=== PATIENT | female | born 1945 | race Caucasian/White ===

== ENCOUNTER → 2018-07-23 | Outpatient (CLI) | payer MEDICARE, BC ==
--- NOTE | 2018-07-24 13:53 | MM ---
Reason for exam: screening (asymptomatic). Last mammogram was performed 1 year ago. History: Patient is postmenopausal. Family history of breast cancer in mother at age 70. Benign excisional biopsy of the left breast. Took estrogen for 5 years. Physical Findings: A clinical breast exam by your physician is recommended on an annual basis and results should be correlated with mammographic findings. MG 3D Screening Mammo W/Cad Bilateral CC and MLO view(s) were taken. Prior study comparison: July 22, 2017, bilateral MG 3d screening mammo w/cad. July 20, 2016, bilateral MG 3d screening mammo w/cad. The breast tissue is heterogeneously dense. This may lower the sensitivity of mammography. No suspicious abnormality. Post biopsy change on the left. No significant changes when compared with prior studies. ASSESSMENT: Benign, BI-RAD 2 RECOMMENDATION: Routine screening mammogram of both breasts in 1 year.
== END | disposition home or self-care (01) ==
LOC: RADMAMWWP 09:49
PROVIDERS: ATTEND Internal Medicine Geriatric Medicine
DX: Z12.31 Encounter for screening mammogram for malignant neoplasm of breast (principal)
CPT/HCPCS: 77063; 77067

== ENCOUNTER → 2019-07-24 | Outpatient (CLI) | payer BC, MEDICARE ==
--- NOTE | 2019-07-27 11:38 | MM ---
Reason for exam: screening (asymptomatic). Last mammogram was performed 1 year ago. History: Patient is postmenopausal. Family history of breast cancer in mother at age 70. Benign excisional biopsy of the left breast. Took estrogen for 5 years. Physical Findings: A clinical breast exam by your physician is recommended on an annual basis and results should be correlated with mammographic findings. MG Screening Mammo w CAD Bilateral CC, MLO, and XCCL view(s) were taken. Prior study comparison: July 23, 2018, bilateral MG 3d screening mammo w/cad. July 22, 2017, bilateral MG 3d screening mammo w/cad. The breast tissue is heterogeneously dense. This may lower the sensitivity of mammography. Benign appearing calcifications in the left breast. No suspicious abnormality. No significant changes when compared with prior studies. ASSESSMENT: Benign, BI-RAD 2 RECOMMENDATION: Routine screening mammogram of both breasts in 1 year.
== END | disposition home or self-care (01) ==
LOC: RADMAMWWP 08:59
PROVIDERS: ATTEND Internal Medicine Geriatric Medicine
DX: Z12.31 Encounter for screening mammogram for malignant neoplasm of breast (principal)
CPT/HCPCS: 77067

== ENCOUNTER → 2019-08-25 | Outpatient (CLI) | payer BC, MEDICARE ==
--- NOTE | 2019-08-25 15:17 | BD ---
EXAMINATION TYPE: Axial Bone Density DATE OF EXAM: 08/25/2019 COMPARISON: 2014 CLINICAL HISTORY: M [age] Height: 5 FT Weight: 99 FRAX RISK QUESTIONS: Alcohol (3 or more units per day): NO Family History (Parent hip fracture): YES Glucocorticoids (More than 3mos): NO (Ex: prednisone, prednisolone, methylprednisolone, dexamethasone, and hydrocortisone). History of Fracture in Adulthood: NO Secondary Osteoporosis: 1. Type 1 Diabetes: NO 2. Hyperthyroidism: NO 3. Menopause before 45: NO 4. Malnutrition: NO 5. Chronic liver disease: NO Rheumatoid Arthritis: NO Current Tobacco Use: NO RISK FACTORS HISTORY OF: Family History of Osteoporosis: MOTHER Active: YES Postmenopausal woman: APPROX 48 Lost more than 2 inches in height since high school: YES MEDICATIONS: Additional Medications: UNKNOWN Additional History: EXAM MEASUREMENTS: Bone mineral densitometry was performed using the [employer] System. Bone mineral density as measured about the Lumbar spine is: ----- L1-L4(G/cm2): 0.998 T Score Values are as follows: ----- L2: -2.5 ----- L3: -0.6 ----- L4: -1.0 ----- L1-L4: -1.5 Bone mineral density has: INCREASED 0.7 % since study of: 2014 Bone mineral density about the R hip (g/cm2): 0.710 Bone mineral density about the L hip (g/cm2): 0.671 T Score values are as follows: -----R Neck: -2.4 -----L Neck: -2.6 -----R Total: -2.6 -----L Total: -2.3 Bone mineral density has: DECREASED -13.6 % since study of: 2014 IMPRESSION: Osteoporosis (T Score less than -2.5). There is increased fracture risk and therapy is usually indicated based on age. Re-Screen 1-2 years. NOTE: T-SCORE=SD OF THE YOUNG ADULT MEAN.
== END | disposition home or self-care (01) ==
LOC: RADBDWWP 12:29
PROVIDERS: ATTEND Internal Medicine Geriatric Medicine
DX: M81.0 Age-related osteoporosis without current pathological fracture (principal)
CPT/HCPCS: 77080

== ENCOUNTER → 2020-11-29 | Outpatient (CLI) | payer MEDICARE ==
--- NOTE | 2020-11-30 11:41 | MM ---
Reason for exam: screening (asymptomatic). Last mammogram was performed 1 year and 4 months ago. History: Patient is postmenopausal. Family history of breast cancer in mother at age 70. Benign excisional biopsy of the left breast. Took estrogen for 5 years. Physical Findings: A clinical breast exam by your physician is recommended on an annual basis and results should be correlated with mammographic findings. MG 3D Screening Mammo W/Cad Bilateral CC and MLO view(s) were taken. Prior study comparison: July 24, 2019, bilateral MG screening mammo w CAD. July 23, 2018, bilateral MG 3d screening mammo w/cad. The breast tissue is heterogeneously dense. This may lower the sensitivity of mammography. Finding #1: There is stable architectural distortion in the upper outer quadrant of the left breast consistent with known excisional changes. Finding #2: There are typically benign round calcifications in the left breast. There is no discrete abnormality. ASSESSMENT: Benign, BI-RAD 2 RECOMMENDATION: Routine screening mammogram of both breasts in 1 year.
== END | disposition home or self-care (01) ==
LOC: RADMAMWWP 10:41
PROVIDERS: ATTEND Internal Medicine Geriatric Medicine
DX: Z12.31 Encounter for screening mammogram for malignant neoplasm of breast (principal); Z80.3 Family history of malignant neoplasm of breast; Z78.0 Asymptomatic menopausal state
CPT/HCPCS: 77063; 77067

== ENCOUNTER → 2022-05-23 | Outpatient (CLI) | payer MEDICARE ==
--- NOTE | 2022-05-24 07:00 | BD ---
EXAMINATION TYPE: Axial Bone Density DATE OF EXAM: 05/23/2022 COMPARISON: NONE CLINICAL HISTORY: 77 year old Female. ICD-10 CODE: M81.0 AGE RELATED OSTEOPOROSIS Height: 61 Weight: 117.7 FRAX RISK QUESTIONS: Alcohol (3 or more units per day): no Family History (Parent hip fracture): no Glucocorticoids (More than 3mos): no (Ex: prednisone, prednisolone, methylprednisolone, dexamethasone, and hydrocortisone). History of Fracture in Adulthood: no Secondary Osteoporosis: 1. Type 1 Diabetes: no 2. Hyperthyroidism: no 3. Menopause before 45: no 4. Malnutrition: no 5. Chronic liver disease: no Rheumatoid Arthritis: no Current Tobacco Use: no RISK FACTORS HISTORY OF: Surgery to Spine/Hip(right/left)/Wrist (right/left): no Family History of Osteoporosis: yes Active: yes Diet low in dairy products/other sources of calcium: no Postmenopausal woman: yes Lost more than 2 inches in height since high school: no MEDICATIONS: Additional History: EXAM MEASUREMENTS: Bone mineral densitometry was performed using the [employer] System. Bone mineral density as measured about the Lumbar spine is: ----- L1-L4(G/cm2): 1.029 T Score Values are as follows: ----- L1: -1.9 ----- L2: -2.3 ----- L3: -0.5 ----- L4: -0.7 ----- L1-L4: -1.3 Bone mineral density has: increased 3.0 % since study of: 07.01.2015 Bone mineral density about the R hip (g/cm2): 0.680 Bone mineral density about the L hip (g/cm2): 0.649 T Score values are as follows: -----R Neck: -2.6 -----L Neck: -2.8 -----R Total: -2.3 -----L Total: -1.9 Bone mineral density has: decreased -8.5 % since study of: 07.01.2015 FRAX%s: The graph provided illustrates a 20.5% chance for a major osteoporotic fx and a 8.1% chance f or the hips probability for fx in 10 years time. IMPRESSION: Osteopenia (T Score between -2.5 and -1). There is slightly increased risk of fracture and the patient may be considered for treatment. Re-Screen 2-5 years. NOTE: T-SCORE=SD OF THE YOUNG ADULT MEAN.
--- NOTE | 2022-05-24 10:11 | MM ---
Reason for Exam: Screening (asymptomatic). Last mammogram was performed 1 year(s) and 6 month(s) ago. Patient History: Menarche at age 9. First Full-Term at age 19. Postmenopausal. Patient used Estrogen for 5 years. Benign Excisional Biopsy on the left side. Mother had breast cancer, age 70. Risk Values: Corry 5 year model risk: 4.2%. NCI Lifetime model risk: 6.9%. Prior Study Comparison: 07/23/2018 Bilateral Screening Mammogram, [facility]. 07/24/2019 Bilateral Screening Mammogram, [facility] 11/29/2020 Bilateral Screening Mammogram, [facility]. Tissue Density: The breast tissue is heterogeneously dense. This may lower the sensitivity of mammography. Findings: Analyzed By CAD. There is no suspicious group of microcalcifications or new suspicious mass in either breast. No significant change from prior exams. Overall Assessment: Benign, BI-RAD 2 Management: Screening Mammogram of both breasts in 1 year. A clinical breast exam by your physician is recommended on an annual basis and results should be correlated with mammographic findings. Electronically signed and approved by: Jaime Kaiser D.O.
== END | disposition home or self-care (01) ==
LOC: RADMAMWWP 12-27 15:47 → RADBDWWP 15:43
PROVIDERS: ATTEND Internal Medicine Geriatric Medicine
DX: Z12.31 Encounter for screening mammogram for malignant neoplasm of breast (principal); M85.89 Other specified disorders of bone density and structure, multiple sites; Z78.0 Asymptomatic menopausal state; Z80.3 Family history of malignant neoplasm of breast
CPT/HCPCS: 77063; 77067; 77080

== ENCOUNTER 2024-07-07 10:38 | Observation (INO) | payer MEDICARE ==
[2024-07-07] MEDS: SODIUM CHLORIDE 0.9% 500 ML 500 ML IV STA (11:09)
--- NOTE | 2024-07-07 11:36 | ED ---
Dizziness HPI - General Chief Complaint: Syncope Stated Complaint: Syncope Time Seen by Provider: 07/07/24 10:40 Source: patient, family, EMS, RN notes reviewed Mode of arrival: EMS Limitations: no limitations - History of Present Illness Initial Comments: 79 year old female presents to the emergency department with chief complaint of dizziness via EMS. Family reports video of patient feeling light headed, lowering self to seated position, then hitting right side of head on ground. She is not currently taking any blood thinners. She denies pain, vision changes, headache, loss of consciousness, or other complaints. Family states that she does have a history of Alzheimer's disease and dementia and that she is awaiting placement at [facility]. - Related Data Home Medications Medication Instructions Recorded Confirmed Alendronate Sodium [Fosamax] 70 mg PO Q7D 09/30/22 07/07/24 Donepezil HCl [Aricept] 10 mg PO HS 09/30/22 07/07/24 Rosuvastatin Calcium 5 mg PO HS 09/30/22 07/07/24 Memantine [Namenda] 10 mg PO HS 07/07/24 07/07/24 Allergies Allergy/AdvReac Type Severity Reaction Status Date / Time Penicillins Allergy Rash/Hives Verified 07/07/24 11:34 Review of Systems ROS Statement: Those systems with pertinent positive or pertinent negative responses have been documented in the HPI. ROS Other: All systems not noted in ROS Statement are negative. Past Medical History Past Medical History: Dementia, Hyperlipidemia, Osteoarthritis (OA), Sleep Apnea /CPAP/BIPAP Additional Past Medical History / Comment(s): osteoporosis History of Any Multi-Drug Resistant Organisms: None Reported Past Surgical History: Breast Surgery Past Anesthesia/Blood Transfusion Reactions: No Reported Reaction Past Psychological History: No Psychological Hx Reported Smoking Status: Never smoker Past Alcohol Use History: None Reported Past Drug Use History: None Reported - Past Family History Father Family Medical History: Myocardial Infarction (MN) Mother Additional Family Medical History / Comment(s): breastcer can General Exam Limitations: no limitations General appearance: alert, in no apparent distress Head exam: Present: atraumatic, normocephalic, normal inspection Eye exam: Present: normal appearance, PERRL, EOMI. Absent: scleral icterus, conjunctival injection, periorbital swelling ENT exam: Present: normal exam, mucous membranes moist Neck exam: Present: normal inspection. Absent: tenderness, meningismus, lymphadenopathy Respiratory exam: Present: normal lung sounds bilaterally. Absent: respiratory distress, wheezes, rales, rhonchi, stridor Cardiovascular Exam: Present: regular rate, normal rhythm, normal heart sounds. Absent: systolic murmur, diastolic murmur, rubs, gallop, clicks GI/Abdominal exam: Present: soft, normal bowel sounds. Absent: distended, tenderness, guarding, rebound, rigid Extremities exam: Present: normal inspection, full ROM, normal capillary refill. Absent: tenderness, pedal edema, joint swelling, calf tenderness Back exam: Present: normal inspection Neurological exam: Present: alert, oriented X3, CN II-XII intact Psychiatric exam: Present: normal affect, normal mood Skin exam: Present: warm, dry, intact, normal color. Absent: rash Course Vital Signs 07/07/24 07/07/24 10:39 12:22 Temperature 97.7 F Pulse Rate 74 Pulse Rate [ 77 Sitting Dental Officer] Pulse Rate [ 82 Standing Dental Officer ] Pulse Rate [ 70 Supine Dental Officer] Respiratory 16 Rate Blood Pressure 165/89 Blood Pressure 174/103 [Right Arm Sitting] Blood Pressure 173/108 [Right Arm Standing] Blood Pressure 162/85 [Right Arm Supine] O2 Sat by Pulse 100 Oximetry EKG Findings - EKG Comments: EKG Findings:: EKG performed at 10: 49 frequent PVCs, sinus rhythm rate 71 NV 162 QRS 85 QT/QTc 412/435. Repeat EKG 11: 06 rate of 78 QRS 86 QT/QTc 404/438 multiple PVCs - EKG Results: EKG: interpreted by MANUEL Medical Decision Making - Medical Decision Making Was pt. sent in by a medical professional or institution (, PA, WIENER PACKER, urgent care, hospital, or halfway...) When possible be specific @ -No Did you speak to anyone other than the patient for history (EMS, parent, family, police, friend...)? What history was obtained from this source @ -[Family providing past medical history and current complaint Did you review nursing and triage notes (agree or disagree)? Why? @ -I reviewed and agree with nursing and triage notes Were old charts reviewed (outside hosp., previous admission, EMS record, old EKG, old radiological studies, urgent care reports/EKG's, halfway records)? Report findings @ -No old charts were reviewed Differential Diagnosis (chest pain, altered mental status, abdominal pain women, abdominal pain men, vaginal bleeding, weakness, fever, dyspnea, syncope, headache, dizziness, GI bleed, back pain, seizure, CVA, palpatations, mental health, musculoskeletal)? @ -Differential Syncope: Valvular disease, hypertrophic cardiomyopathy, pulmonary embolism, tamponade, tachycardia, bradycardia, MN, hypovolemia, hemorrhage, dissection, anemia, intracranial hemorrhage, seizure, hypoglycemia, carbon monoxide poisoning, this is not meant to be an all-inclusive list. EKG interpreted by me (3pts min.). @ -As above X-rays interpreted by me (1pt min.). @ -Chest x-ray shows possible atelectasis versus bibasilar infiltrates CT interpreted by me (1pt min.). @ -CT brain, C-spine showing no acute intracranial hemorrhage or mass effect U/S interpreted by me (1pt. min.). @ -None done What testing was considered but not performed or refused? (CT, X-rays, U/S, labs)? Why? @ -None What meds were considered but not given or refused? Why? @ -None Did you discuss the management of the patient with other professionals (professionals i.e. , PA, WIENER PACKER, lab, RT, psych nurse, social services assistant, safety fire boss, teacher, policy officer, nurse outreach case manager)? Give summary @ -Dr. Estrella for admission Was smoking cessation discussed for >3mins.? @ -No Was critical care preformed (if so, how long)? @ -No Were there social determinants of health that impacted care today? How? (Homelessness, low income, unemployed, alcoholism, drug addiction, transportation, low edu. Level, literacy, decrease access to med. care, residential, rehab)? @ -No Was there de-escalation of care discussed even if they declined (Discuss DNR or withdrawal of care, Hospice)? DNR status @ -No What co-morbidities impacted this encounter? (DM, HTN, Smoking, COPD, CAD, Cancer, CVA, ARF, Chemo, Hep., AIDS, mental health diagnosis, sleep apnea, morbid obesity)? @ -Dementia Was patient admitted / discharged? Hospital course, mention meds given and route, prescriptions, significant lab abnormalities, going to OR and other pertinent info. @ -Admitted patient presented for syncopal episode patient is currently living at home by herself unclear this is vasovagal versus cardiogenic. Patient will be admitted for cardiac rule out and cardiology evaluation. Chest x-ray showed possible bibasilar infiltrates patient has no cough fever or any URI symptoms Undiagnosed new problem with uncertain prognosis? @ -No Drug Therapy requiring intensive monitoring for toxicity (Heparin, Nitro, Insulin, Cardizem)? @ -No Were any procedures done? @ -No Diagnosis/symptom? @ -Syncope Acute, or Chronic, or Acute on Chronic? @ -Acute Uncomplicated (without systemic symptoms) or Complicated (systemic symptoms)? @ -Complicated Side effects of treatment? @ -No Exacerbation, Progression, or Severe Exacerbation? @ -No Poses a threat to life or bodily function? How? (Chest pain, USA, MN, pneumonia, PE, COPD, DKA, ARF, appy, cholecystitis, CVA, Diverticulitis, Homicidal, Suicidal, threat to staff... and all critical care pts) @ -No - Lab Data Result diagrams: 07/07/24 10:57 07/07/24 10:57 Lab Results 07/07/24 07/07/24 07/07/24 Range/Units 10:57 10:57 10:57 WBC 8.2 (3.8-10.6) k/uL RBC 4.55 (3.80-5.40) m/uL Hgb 13.5 (11.4-16.0) gm/dL Hct 41.6 (34.0-46.0) % MCV 91.6 (80.0-100.0) fL MCH 29.6 (25.0-35.0) pg MCHC 32.4 (31.0-37.0) g/dL RDW 13.2 (11.5-15.5) % Plt Count 273 (150-450) k/uL MPV 7.4 Neutrophils % 77 % Lymphocytes % 14 % Monocytes % 5 % Eosinophils % 2 % Basophils % 0 % Neutrophils # 6.4 (1.3-7.7) k/uL Lymphocytes # 1.2 (1.0-4.8) k/uL Monocytes # 0.4 (0-1.0) k/uL Eosinophils # 0.2 (0-0.7) k/uL Basophils # 0.0 (0-0.2) k/uL PT (10.0-12.5) sec INR (<1.2) APTT (22.0-30.0) sec Sodium 139 (137-145) mmol/L Potassium 4.4 (3.5-5.1) mmol/L Chloride 108 H (98-107) mmol/L Carbon Dioxide 26 (22-30) mmol/L Anion Gap 5 mmol/L BUN 20 H (7-17) mg/dL Creatinine 0.75 (0.52-1.04) mg/dL Est GFR (CKD-EPI)AfAm 87 (>60 ml/min/1.73 sqM) Est GFR (CKD-EPI)NonAf 75 (>60 ml/min/1.73 sqM) Glucose 124 H (74-99) mg/dL Plasma Lactic Acid Darrion 1.9 (0.7-2.0) mmol/L Calcium 8.8 (8.4-10.2) mg/dL Magnesium 2.1 (1.6-2.3) mg/dL Total Bilirubin 0.9 (0.2-1.3) mg/dL AST 40 H (14-36) U/L ALT 18 (4-34) U/L Alkaline Phosphatase 64 (38-126) U/L Troponin I (0.000-0.034) ng/mL Total Protein 7.3 (6.3-8.2) g/dL Albumin 4.1 (3.5-5.0) g/dL 07/07/24 07/07/24 Range/Units 10:57 11:11 WBC (3.8-10.6) k/uL RBC (3.80-5.40) m/uL Hgb (11.4-16.0) gm/dL Hct (34.0-46.0) % MCV (80.0-100.0) fL MCH (25.0-35.0) pg MCHC (31.0-37.0) g/dL RDW (11.5-15.5) % Plt Count (150-450) k/uL MPV Neutrophils % % Lymphocytes % % Monocytes % % Eosinophils % % Basophils % % Neutrophils # (1.3-7.7) k/uL Lymphocytes # (1.0-4.8) k/uL Monocytes # (0-1.0) k/uL Eosinophils # (0-0.7) k/uL Basophils # (0-0.2) k/uL PT 10.8 (10.0-12.5) sec INR 1.0 (<1.2) APTT 21.0 L (22.0-30.0) sec Sodium (137-145) mmol/L Potassium (3.5-5.1) mmol/L Chloride (98-107) mmol/L Carbon Dioxide (22-30) mmol/L Anion Gap mmol/L BUN (7-17) mg/dL Creatinine (0.52-1.04) mg/dL Est GFR (CKD-EPI)AfAm (>60 ml/min/1.73 sqM) Est GFR (CKD-EPI)NonAf (>60 ml/min/1.73 sqM) Glucose (74-99) mg/dL Plasma Lactic Acid Darrion (0.7-2.0) mmol/L Calcium (8.4-10.2) mg/dL Magnesium (1.6-2.3) mg/dL Total Bilirubin (0.2-1.3) mg/dL AST (14-36) U/L ALT (4-34) U/L Alkaline Phosphatase (38-126) U/L Troponin I <0.012 (0.000-0.034) ng/mL Total Protein (6.3-8.2) g/dL Albumin (3.5-5.0) g/dL Disposition Clinical Impression: Syncope Disposition: ADMITTED IP TO THIS HOSP Condition: Fair Referrals: Richard Smith MD [Primary Care Provider] - 1-2 days Time of Disposition: 13:12
[2024-07-07 11:44] LABS: Basophils % (A) 0 %; Eosinophils # (A) 0.2 k/uL (0-0.7); Eosinophils % (A) 2 %; HCT 41.6 % (34.0-46.0); HGB 13.5 gm/dL (11.4-16.0); Lymphocytes # (A) 1.2 k/uL (1.0-4.8); Lymphocytes % (A) 14 %; MCH 29.6 pg (25.0-35.0); MCHC 32.4 g/dL (31.0-37.0); MCV 91.6 fL (80.0-100.0); Mean Platelet Volume 7.4; Monocytes # (A) 0.4 k/uL (0-1.0); Monocytes % (A) 5 %; Neutrophils # (A) 6.4 k/uL (1.3-7.7); Neutrophils % (A) 77 %; Platelet Count 273 k/uL (150-450); RBC 4.55 m/uL (3.80-5.40); RDW 13.2 % (11.5-15.5); WBC 8.2 k/uL (3.8-10.6)
--- NOTE | 2024-07-07 11:52 | CT ---
EXAMINATION TYPE: CT brain cspine wo con CT DLP: 1266.4 mGycm, Automated exposure control for dose reduction was used. DATE OF EXAM: 07/07/2024 11:43 AM COMPARISON: CT brain 09/30/2022. CLINICAL INDICATION:Female, 79 years old with history of pain; syncope, fall TECHNIQUE: Brain: Multiple axial CT images of the brain were obtained without IV contrast. Cspine: Axial CT images from the skull base to the inferior aspect of T2 we obtained without intraven ous contrast. Coronal and sagittal reformatted images were also reviewed. FINDINGS: Brain: Extra-axial spaces: No abnormal extra-axial fluid collections. Ventricular system: Similar mild hydrocephalus involving the lateral ventricles and third ventricle. Cerebral parenchyma: Mild cerebral atrophy. No acute intraparenchymal hemorrhage or mass effect. The ramirez-white junction is well differentiated. Confluent hypoattenuating areas are seen within the atiya ventricular and subcortical white matter. Nonspecific right basal ganglia calcifications. Cerebellum: Unremarkable. Mass effect: No evidence of midline shift. Intracranial vasculature: Atherosclerotic calcifications of the intracranial vessels. Soft tissues: Normal. Calvarium/osseous structures: No depressed skull fracture. Paranasal sinuses and mastoid air cells: The mastoid air cells are clear. Mild mucosal thickening of the ethmoid sinus with moderate mucosal thickening in the left sphenoid sinus. Remaining paranasal si nuses are clear. Visualized orbits: Bilateral aphakia Cervical spine: Fracture: None. Osseous structures: Multilevel degenerative disc disease changes with endplate spurring and disc oste ophyte complex's. Degenerative changes of the bilateral TMJ joints. Vertebral alignment: Within normal limits. Spinal canal/Neural Foramina: Disc osteophyte complexes at C4-C5 without significant central canal st enosis. Facet joint uncovertebral joint arthropathy scattered throughout the cervical spine with vary ing degrees of neural foraminal stenosis. Fusion of the right C2-C3 facet joint. Neck soft tissues: Prevertebral soft tissues are within normal limits. Other: The airway is patent. Biapical pleural-parenchymal scarring. Few scattered foci of gas identif ied within the venous vasculature likely from IV access. Bilateral carotid bulb calcifications. IMPRESSION: 1. No acute traumatic intracranial process. 2. Nonspecific white matter changes, likely secondary to chronic small vessel ischemic disease. 3. Similar mild hydrocephalus. 4. No evidence of cervical spine fracture. 5. Mild multilevel degenerative disc disease. [facility], , 07/07/2024 11:49 AM
--- NOTE | 2024-07-07 12:00 | XR ---
EXAMINATION TYPE: XR chest 2V DATE OF EXAM: 07/07/2024 11:55 AM COMPARISON: None TECHNIQUE: XR chest 2V Frontal and lateral views of the chest. CLINICAL INDICATION:Female, 79 years old with history of syncope; FINDINGS: Lungs/Pleura: There is no evidence of pleural effusion or pneumothorax. Hyperinflation. Bibasilar pa tchy airspace opacities. Pulmonary vascularity: Unremarkable. Heart/mediastinum: Cardiomediastinal silhouette is unremarkable. Musculoskeletal: Multiple level degenerative disc disease changes seen throughout the spine. No acute osseous abnormality. IMPRESSION: 1. Bibasilar patchy airspace opacities concerning for pneumonia. 2. COPD changes. [facility], , 07/07/2024 11:58 AM
[2024-07-07 12:10] LABS: Prothrombin Time 10.8 sec (10.0-12.5)
[2024-07-07 12:25] LABS: ALT 18 U/L (4-34); African American GFR (CKD) 87 (>60 ml/min/1.73 sqM); Anion Gap 5 mmol/L; Blood Urea Nitrogen 20 mg/dL (7-17); Calcium 8.8 mg/dL (8.4-10.2); Carbon Dioxide 26 mmol/L (22-30); Chloride 108 mmol/L (98-107); Glucose 124 mg/dL (74-99); Non-African American GFR(CKD) 75 (>60 ml/min/1.73 sqM); Sodium 139 mmol/L (137-145)
[2024-07-07 12:28] LABS: AST 40 U/L (14-36); Albumin 4.1 g/dL (3.5-5.0); Alkaline Phosphatase 64 U/L (38-126); Magnesium 2.1 mg/dL (1.6-2.3); Potassium 4.4 mmol/L (3.5-5.1); Total Bilirubin 0.9 mg/dL (0.2-1.3); Total Protein 7.3 g/dL (6.3-8.2)
[2024-07-07] MEDS ORDERED: ONDANSETRON 4 MG/2 ML VIAL IVP PRN (13:09)
[2024-07-07] MEDS ORDERED: ACETAMINOPHEN TAB 325 MG TAB PO PRN (13:09)
[2024-07-07] MEDS ORDERED: NALOXONE 0.4 MG/ML 1 ML VIAL IV PRN (13:09)
[2024-07-07] MEDS: SODIUM CHLORIDE 0.9% 1,000 ML IV SCH (13:27)
--- NOTE | 2024-07-07 13:35 | P.HPIM ---
History of Present Illness H&P Date: 07/07/24 History of present illness; patient is a 79-year-old lady with past medical history significant for hyperlipidemia, dementia presented the ER because of a syncopal episode. Patient lives alone, family has set up video monitoring with the help of Geri russo. Patient was all right this morning and was talking with her son on the phone, when while getting up from the chair and walking across the kitchen she became lightheaded, patient was told by her son to lower herself to a seated position and the next thing patient passed out hitting her head. Patient was passed out for less than a minute. There was no complaint of any loss of fecal or urine incontinence. There was no noticeable jerking movement of any extremity. Patient denied any shortness of breath or palpitations prior to this episode. There is no complaint of any chest pain. Patient denies any nausea, vomiting or abdominal pain. Because of the syncopal episode, patient brought to the ER Initial lab work done in the ER showed WBC 8.2, hemoglobin 13.5, platelet count 273, sodium 139, potassium 4.4, BUN 20, creatinine 0.75, glucose 124, AST 40, ALT 18, troponin 0.012 Chest x-ray done in the ER showed bibasilar patchy opacities concerning for pneumonia CT head done showed no acute intracranial process CT cervical spine done showed no evidence of cervical spine fracture Patient admitted to internal medicine service REVIEW OF SYSTEMS: CONSTITUTIONAL: No fever, no malaise, no fatigue. HEENT: No recent visual problems or hearing problems. Denied any sore throat. CARDIOVASCULAR: As mentioned above PULMONARY: As mentioned above GASTROINTESTINAL: No diarrhea, no nausea, no vomiting, no abdominal pain. NEUROLOGICAL: No headaches, no weakness, no numbness. HEMATOLOGICAL: Denies any bleeding or petechiae. GENITOURINARY: Denies any burning micturition, frequency, or urgency. MUSCULOSKELETAL/RHEUMATOLOGICAL: Denies any joint pain, swelling, or any muscle pain. ENDOCRINE: Denies any polyuria or polydipsia. The rest of the 14-point review of systems is negative. PHYSICAL EXAMINATION: GENERAL: The patient is alert , not in any acute distress. Well developed, well nourished. HEENT: Pupils are round and equally reacting to light. EOMI. No scleral icterus. No conjunctival pallor. Normocephalic, atraumatic. No pharyngeal erythema. No thyromegaly. CARDIOVASCULAR: S1 and S2 present. No murmurs, rubs, or gallops. PULMONARY: Chest is clear to auscultation, no wheezing or crackles. ABDOMEN: Soft, nontender, nondistended, normoactive bowel sounds. No palpable organomegaly. MUSCULOSKELETAL: No joint swelling or deformity. EXTREMITIES: No cyanosis, clubbing, or pedal edema. NEUROLOGICAL: Gross neurological examination did not reveal any focal deficits. SKIN: No rashes. Assessment and plan Syncopal episode Fall History of osteoporosis History of dementia Monitor vital signs Monitor CBC Monitor CMP Continue telemetry monitoring Ordered serial troponin Ordered D-dimer Ordered 2D echo Ordered ultrasound carotids Resume home med Consult cardiology Labs and medication were reviewed.. Continue same treatment. Continue with symptomatic treatment. Resume home medication. Monitor labs and vitals. DVT and GI prophylaxis. Further recommendations as per clinical course of the patient Dictation was produced using [employer] dictation software. please excuse any grammatical, word or spelling errors. Past Medical History Past Medical History: Dementia, Hyperlipidemia, Osteoarthritis (OA), Sleep Apnea/CPAP/BIPAP Additional Past Medical History / Comment(s): osteoporosis History of Any Multi-Drug Resistant Organisms: None Reported Past Surgical History: Breast Surgery Past Anesthesia/Blood Transfusion Reactions: No Reported Reaction Past Psychological History: No Psychological Hx Reported Smoking Status: Never smoker Past Alcohol Use History: None Reported Past Drug Use History: None Reported - Past Family History Father Family Medical History: Myocardial Infarction ([place]) Mother Additional Family Medical History / Comment(s): breastcer can Medications and Allergies Home Medications Medication Instructions Recorded Confirmed Type Alendronate Sodium [Fosamax] 70 mg PO Q7D 09/30/22 07/07/24 History Donepezil HCl [Aricept] 10 mg PO HS 09/30/22 07/07/24 History Rosuvastatin Calcium 5 mg PO HS 09/30/22 07/07/24 History Memantine [Namenda] 10 mg PO HS 07/07/24 07/07/24 History Allergies Allergy/AdvReac Type Severity Reaction Status Date / Time Penicillins Allergy Rash/Hives Verified 07/07/24 11:34 Physical Exam Vitals: Vital Signs Temp Pulse Pulse Pulse Pulse Resp BP 07/07/24 12:22 77 82 70 07/07/24 10:39 97.7 F 74 16 165/89 BP BP BP Pulse Ox 07/07/24 12:22 174/103 173/108 162/85 07/07/24 10:39 100 Intake and Output 07/06/24 07/07/24 07/07/24 22:59 06:59 14:59 Other: Weight 63.503 kg Results CBC & Chem 7: 07/07/24 10:57 07/07/24 10:57 Labs: Abnormal Lab Results - Last 24 Hours (Table) 07/07/24 07/07/24 Range/Units 10:57 11:11 APTT 21.0 L (22.0-30.0) sec Chloride 108 H (98-107) mmol/L BUN 20 H (7-17) mg/dL Glucose 124 H (74-99) mg/dL AST 40 H (14-36) U/L
[2024-07-07] MEDS ORDERED: NON FORMULARY DRUG (Alendronate Sodium [Fosamax] 70 MG Tablet) PO SCH (13:45)
--- NOTE | 2024-07-07 14:06 | US ---
EXAMINATION TYPE: US carotid duplex BILAT DATE OF EXAM: 07/07/2024 COMPARISON: NONE CLINICAL INDICATION: Female, 79 years old with history of Syncope; Syncope Additional History: .... TECHNIQUE: Grayscale, color Doppler and spectral Doppler evaluation of the bilateral carotid systems and vertebral arteries. Indirect Doppler criteria was utilized. FINDINGS: EXAM MEASUREMENTS: RIGHT: Peak Systolic Velocity (PSV) cm/sec ----- Right CCA: 100 ----- Right ICA: 76.6 ----- Right ECA: 110 ICA/CCA ratio: 0.8 RIGHT: End Diastole cm/sec ----- Right CCA: 15.6 ----- Right ICA: 17.5 ----- Right ECA: 5.7 LEFT: Peak Systolic Velocity (PSV) cm/sec ----- Left CCA: 90.7 ----- Left ICA: 89.5 ----- Left ECA: 121 ICA/CCA ratio: 1.0 LEFT: End Diastole cm/sec ----- Left CCA: 12.6 ----- Left ICA: 17.8 ----- Left ECA: 9.5 VERTEBRALS (direction of flow): Right Vertebral: Antegrade Left Vertebral: Antegrade Rhythm: Arrhythmia MANAGER GIFT NOTES: No significant stenosis seen Color Doppler imaging shows patency with blood flow throughout the carotid artery. Spectral waveforms are within normal limits. IMPRESSION: Right: Less than 50% stenosis of the carotid bifurcation. Left: Less than 50% stenosis of the carotid bifurcation. Criteria for Assigning % of Stenosis / Diameter reduction (Estimation based on the indirect measurements of the internal carotid artery velocities (ICA PSV). 1. Normal (no stenosis)=ICA PSV < 125 cm/s: ratio < 2.0: ICA EDV<40 cm/s. 2. Less than 50% stenosis=ICA PSV < 125 cm/s: ratio < 2.0: ICA EDV<40 cm/s. 3. 50 to 69% stenosis=ICA PSV of 125 to 230 cm/s: ration 2.0 ? 4.0: ICA EDV 40-100 cm/s. 4. Greater than 70% stenosis to near occlusion= ICA PSV > 230 cm/s: ratio > 4.0: ICA EDV > 100 cm/s. 5. Near occlusion= ICA PSV velocities may be low or undetectable: variable ratio and ICA EDV. 6. Total occlusion=unable to detect flow. [facility], , 07/07/2024 2:04 PM
[2024-07-07] MEDS: MEMANTINE 10 MG TAB PO SCH (21:39)
[2024-07-07] MEDS: DONEPEZIL 10 MG TAB PO SCH (21:39)
[2024-07-07] MEDS: ATORVASTATIN 10 MG TAB PO SCH (21:39)
[2024-07-08 01:34] VITALS: BP 160/73; PULSE 79; RESP 18; TEMP 97.8
[2024-07-08] MEDS: QUEtiapine 25 MG TAB PO SCH (03:56)
--- NOTE | 2024-07-08 10:37 | P.CRDCN ---
History of Present Illness History of present illness: HISTORY OF PRESENT ILLNESS: This is a 79-year-old female with a past medical history significant for dementia and hyperlipidemia. Patient does not follow with a sweet dough mixer. We have been asked to see the patient in consultation for syncope. Patient examined at the bedside. Patient is confused at time of examination. She is unsure where she was at. She states that she is here because she saw somebody shoot a dog. There is no family present at the time of examination. There is a director medical safety at the bedside as patient became more confused and somewhat combative overnight. According to the ER note, the patient's family was watching the patient through a ring camera at her house when she stated that she felt lightheaded and then fell and hit her head. The patient does not have any recollection of this event. She currently denies chest pain or pressure. She denies shortness of breath. Vital signs are stable. Orthostatic blood pressures were obtained and were negative. DIAGNOSTICS: - EKG reveals sinus mechanism with frequent PVCs - Chest xray bibasilar patchy airspace opacities concerning for pneumonia. COPD changes. - Carotid Doppler: Less than 50% stenosis of carotid bifurcation bilaterally - Laboratory data: WBC 8.2. Hemoglobin 13.5. Platelet count 273. D-dimer 0.43. Sodium 139. Potassium 4.4. BUN 20. Creatinine 0.75. Troponin negative x 3 - Current home cardiac medications include rosuvastatin 5 mg daily -No previous echocardiogram, stress test, or cardiac catheterization available for review. REVIEW OF SYSTEMS: At the time of my exam: Unable to obtain thorough review of systems secondary to altered mental status PHYSICAL EXAM: VITAL SIGNS: Reviewed. GENERAL: Well-developed in no acute distress. HEENT: Head is normocephalic. Pupils are equal, round. Sclerae anicteric. Mucous membranes of the mouth are moist. Neck supple. No JVD or thyromegaly LUNGS: Respirations even and unlabored. Lungs essentially clear to auscultation bilaterally. HEART: Irregular rate and rhythm. S1 and S2 heard. ABDOMEN: Soft. Nondistended. Nontender. EXTREMITIES: Normal range of motion. No clubbing or cyanosis. Peripheral pulses intact. No lower extremity edema NEUROLOGIC: Awake and alert. Oriented x 1. ASSESSMENT: Reported syncope, etiology unclear Metabolic encephalopathy Frequent PVCs Hyperlipidemia History of dementia PLAN: Orthostatic blood pressures obtained and were negative Obtain 2D echo to assess cardiac structure and function Continue telemetry monitoring to assess for any arrhythmias Recommend neurology consult. Will defer to internal medicine Recommend 7-day Holter monitor at the time of discharge to assess for PVC burden Patient is currently stable from a cardiac standpoint Further recommendations pending patient course Nurse practitioner note has been reviewed by physician. Signing provider agrees with the documented findings, assessment, and plan of care documented by MULCHER OPERATOR as a scribe. Past Medical History Past Medical History: Dementia, Hyperlipidemia, Osteoarthritis (OA), Sleep Apnea/CPAP/BIPAP Additional Past Medical History / Comment(s): osteoporosis History of Any Multi-Drug Resistant Organisms: None Reported Past Surgical History: Breast Surgery Past Anesthesia/Blood Transfusion Reactions: No Reported Reaction Past Psychological History: No Psychological Hx Reported Smoking Status: Never smoker Past Alcohol Use History: None Reported Past Drug Use History: None Reported - Past Family History Father Family Medical History: Myocardial Infarction ([place]) Mother Additional Family Medical History / Comment(s): breastcer can Medications and Allergies Home Medications Medication Instructions Recorded Confirmed Type Alendronate Sodium [Fosamax] 70 mg PO Q7D 09/30/22 07/07/24 History Donepezil HCl [Aricept] 10 mg PO HS 09/30/22 07/07/24 History Rosuvastatin Calcium 5 mg PO HS 09/30/22 07/07/24 History Memantine [Namenda] 10 mg PO HS 07/07/24 07/07/24 History Allergies Allergy/AdvReac Type Severity Reaction Status Date / Time Penicillins Allergy Rash/Hives Verified 07/07/24 11:34 Physical Exam Vitals: Vital Signs Temp Pulse Pulse Pulse Pulse Resp BP 07/08/24 01:32 97.8 F 79 18 07/07/24 23:08 98.0 F 73 16 126/69 07/07/24 21:46 79 16 132/79 07/07/24 18:00 84 16 131/75 07/07/24 16:31 80 16 122/72 07/07/24 14:08 76 18 121/85 07/07/24 13:27 98.3 F 80 16 100/60 07/07/24 12:22 77 82 70 07/07/24 10:39 97.7 F 74 16 165/89 BP BP BP BP Pulse Ox 07/08/24 01:32 160/73 98 07/07/24 23:08 98 07/07/24 21:46 98 07/07/24 18:00 98 07/07/24 16:31 97 07/07/24 14:08 98 07/07/24 13:27 98 07/07/24 12:22 174/103 173/108 162/85 07/07/24 10:39 100 Intake and Output 07/07/24 07/08/24 07/08/24 22:59 06:59 14:59 Intake Total 0 Balance 0 Intake: Oral 0 Other: Voiding Method Toilet # Voids 2 Weight 63.503 kg Results 07/07/24 10:57 07/07/24 10:57 Cardiac Enzymes 07/07/24 07/07/24 07/07/24 Range/Units 10:57 10:57 14:09 AST 40 H (14-36) U/L Troponin I <0.012 <0.012 (0.000-0.034) ng/mL 07/07/24 Range/Units 17:20 AST (14-36) U/L Troponin I <0.012 (0.000-0.034) ng/mL Coagulation 07/07/24 Range/Units 11:11 PT 10.8 (10.0-12.5) sec APTT 21.0 L (22.0-30.0) sec CBC 07/07/24 Range/Units 10:57 WBC 8.2 (3.8-10.6) k/uL RBC 4.55 (3.80-5.40) m/uL Hgb 13.5 (11.4-16.0) gm/dL Hct 41.6 (34.0-46.0) % Plt Count 273 (150-450) k/uL Comprehensive Metabolic Panel 07/07/24 Range/Units 10:57 Sodium 139 (137-145) mmol/L Potassium 4.4 (3.5-5.1) mmol/L Chloride 108 H (98-107) mmol/L Carbon Dioxide 26 (22-30) mmol/L BUN 20 H (7-17) mg/dL Creatinine 0.75 (0.52-1.04) mg/dL Glucose 124 H (74-99) mg/dL Calcium 8.8 (8.4-10.2) mg/dL AST 40 H (14-36) U/L ALT 18 (4-34) U/L Alkaline Phosphatase 64 (38-126) U/L Total Protein 7.3 (6.3-8.2) g/dL Albumin 4.1 (3.5-5.0) g/dL Current Medications Generic Name Dose Route Start Last Admin Trade Name Freq PRN Reason Stop Dose Admin Acetaminophen 650 mg 07/07/24 13:09 Acetaminophen Tab 325 Mg Tab PO Q6HR PRN Mild Pain or Fever > 100.5 Atorvastatin Calcium 10 mg 07/07/24 21:00 07/07/24 21:39 Atorvastatin 10 Mg Tab PO 10 mg HS SLICK Administration Donepezil HCl 10 mg 07/07/24 21:00 07/07/24 21:39 Donepezil 10 Mg Tab PO 10 mg HS SLICK Administration Sodium Chloride 1,000 mls @ 75 mls/hr 07/07/24 13:15 07/08/24 03:29 Saline 0.9% IV Not Given .[id number] SLICK Memantine 10 mg 07/07/24 21:00 07/07/24 21:39 Memantine 10 Mg Tab PO 10 mg HS SLICK Administration Naloxone HCl 0.2 mg 07/07/24 13:09 Naloxone 0.4 Mg/Ml 1 Ml Vial IV Q2M PRN Opioid Reversal Ondansetron HCl 4 mg 07/07/24 13:09 Ondansetron 4 Mg/2 Ml Vial IVP Q8HR PRN Nausea And Vomiting Quetiapine Fumarate 25 mg 07/08/24 03:28 07/08/24 03:56 Quetiapine 25 Mg Tab PO 25 mg HS SLICK Administration Intake and Output 07/07/24 07/08/24 07/08/24 22:59 06:59 14:59 Intake Total 0 Balance 0 Intake: Oral 0 Other: Voiding Method Toilet # Voids 2 Weight 63.503 kg 07/07/24 10:57 07/07/24 10:57
[2024-07-08] MEDS ORDERED: QUEtiapine 25 MG TAB PO PRN (11:40)
--- NOTE | 2024-07-08 18:13 | CA ---
Transthoracic Echo Report Name: Anushka Wood Age: 79 Gender: F : 1945 Exam Date: 07/08/2024 08:34 Exam Location: [facility] Ht (in): 62 Wt (lb): 140 Ordering Physician: Jamaal Delarosa MD Attending/Referring Phys: Safety Grooving Machine Operator Clary Ruiz RDCS Procedure CPT: Indications: Syncope Cardiac Hx: Technical Quality: Good Contrast 1: Total Dose (mL): Contrast 2: Total Dose (mL): MEASUREMENTS (Male / Female) Normal Values 2D ECHO LV Diastolic Diameter PLAX 4.0 cm 4.2 - 5.9 / 3.9 - 5.3 cm LV Systolic Diameter PLAX 2.7 cm IVS Diastolic Thickness 0.9 cm 0.6 - 1.0 / 0.6 - 0.9 cm LVPW Diastolic Thickness 0.9 cm 0.6 - 1.0 / 0.6 - 0.9 cm LV Relative Wall Thickness 0.5 RV Internal Dim ED PLAX 2.7 cm LA Systolic Diameter LX 2.9 cm 3.0 - 4.0 / 2.7 - 3.8 cm LV Diastolic Volume MOD 4C 58.2 cm??? LV Systolic Volume MOD 4C 25.3 cm??? LV Ejection Fraction MOD 4C 56.5 % LV Cardiac Index MOD 4C 1781.5 cm???/min???m??? LV Diastolic Length 4C 6.8 cm LV Systolic Length 4C 5.8 cm LV Diastolic Volume MOD 2C 76.4 cm??? LV Systolic Volume MOD 2C 30.5 cm??? LV Ejection Fraction MOD 2C 60.1 % LV Cardiac Index MOD 2C 2484.6 cm???/min???m??? LV Diastolic Length 2C 7.2 cm LV Systolic Length 2C 6.0 cm LA Volume 52.2 cm??? 18 - 58 / 22 - 52 cm??? LA Volume Index 31.1 cm???/m??? 16 - 28 cm???/m??? M-MODE Aortic Root Diameter MM 2.8 cm AV Cusp Separation MM 1.8 cm DOPPLER AV Peak Velocity 118.0 cm/s AV Peak Gradient 5.6 mmHg MV Area PHT 3.1 cm??? Mitral E Point Velocity 105.7 cm/s Mitral A Point Velocity 126.2 cm/s Mitral E to A Ratio 0.8 MV Deceleration Time 242.3 ms TR Peak Velocity 274.2 cm/s TR Peak Gradient 30.1 mmHg Right Ventricular Systolic Press 35.1 mmHg FINDINGS Left Ventricle Left ventricular ejection fraction is estimated at 60-65 %. Left ventricular cavity size normal. Left ventricular wall thickness normal. Right Ventricle Normal right ventricular size and function. Mild pulmonary hypertension. Right Atrium Normal right atrial size. No right atrial thrombus or mass seen. Left Atrium Normal left atrial size. No left atrial thrombus or mass present. Mitral Valve Structurally normal mitral valve. Trace mitral regurgitation. Aortic Valve Trileaflet aortic valve. No aortic valve stenosis or regurgitation. Tricuspid Valve Structurally normal tricuspid valve. Mild tricuspid regurgitation. Pulmonic Valve Structurally normal pulmonic valve. No pulmonic regurgitation. Pericardium No pericardial or pleural effusion. Aorta Normal size aortic root and proximal ascending aorta. CONCLUSIONS Left ventricular ejection fraction is estimated at 60-65 %. No obvious regional wall motion abnormality Mild pulmonary hypertension. RVSP 35 mmHg No significant valvular dysfunction No significant chamber size abnormality Previewed by: Dr Luis Jasso (Electronically Signed) Final Date: 08 July 2024 18:12
--- NOTE | 2024-07-10 08:46 | P.DS ---
Providers Date of admission: 07/07/24 12:47 Expected date of discharge: 07/08/24 Attending physician: Jamaal Delarosa MD Consults: 07/07/24 13:09 Consult Physician Routine Consulting Provider: Cristhian Wells Consult Reason/Comments: syncope Do you want consulting provider notified?: Yes Primary care physician: Richard Smith [facility] Course: Final diagnosis Syncopal episode, likely vasovagal after getting up abruptly from sitting Fall History of osteoporosis History of dementia GI prophylaxis DVT prophylaxis Full code Discharge disposition Patient is being discharged in a stable condition with guarded prognosis to home. Patient will follow-up with Dr. Smith in the outpatient setting upon discharge. Patient is to continue with current outpatient follow-up including n eurology as needed and cardiology as scheduled. Total time taken is greater than 35 minutes. Hospital course This is a 79-year-old female who was recently admitted with concerns of possible syncope, likely vasovagal after talking with son. Patient was walking to sit and then sat and then abruptly stood back up and was walking back to the kitchen to put a glass in the sink and started feeling dizzy and was on a FaceTime call with son and reported to him she felt dizzy and he told her to sit down on the ground and shortly thereafter patient fell back and became unresponsive for a second. 911 was notified and patient was brought to the hospital for further evaluation. CT was done with no acute process noted and cardiology evaluated the patient underwent 2D echo and has cleared the patient for discharge recommending a event monitor for 7 days to assess for any abnormal rhythms. Patient has been cleared for outpatient follow-up. Patient does have dementia and [facility] No beds available currently. Patient and family are agreeable to go home and follow-up with primary care provider on discharge. Patient has been cleared for discharge by cardiology. Please refer to cardiology notes for further HPI. Currently no reports of chest pain, shortness of breath, or palpitations. Patient is afebrile. No reports of nausea or vomiting and patient is tolerating diet. Patient will be discharged home today. Physical exam: Gen: This is a 79-year-old female who is awake, alert and oriented x 1-2, baseline, well-developed, elderly appearing, thin built HEENT: Head is atraumatic, normocephalic. Pupils equal, round. Sclerae is anicteric. NECK: Supple. No JVD. No lymphadenopathy. No thyromegaly. LUNGS: Diminished breath sounds bilaterally otherwise clear to auscultation. No wheezes or rhonchi. No intercostal retractions. HEART: Regular rate and rhythm. No murmur. ABDOMEN: Soft. Bowel sounds are present. No masses. No tenderness. EXTREMITIES: No pedal edema. No calf tenderness. NEUROLOGICAL: Patient is awake, alert and oriented x 1-2. Cranial nerves 2 through 12 are grossly intact. Please refer to medication reconciliation sheet for a list of medications. The impression and plan of care has been dictated by Kat Reed, Nurse Practitioner as directed. Dr. Waldo MD I have performed a history and examination and MDM of this patient, discussed the same with the dictator, and agree with the dictator's assessment and plan as written ,documented as a scribe. Based on total visit time, I have performed more than 50% of the visit. Patient Condition at Discharge: Fair Plan - Discharge Summary New Discharge Prescriptions: New Acetaminophen Tab [Tylenol] 650 mg PO Q6HR PRN tab PRN Reason: Mild Pain Or Fever > 100.5 Continue Donepezil HCl [Aricept] 10 mg PO HS Alendronate Sodium [Fosamax] 70 mg PO Q7D Rosuvastatin Calcium 5 mg PO HS Memantine [Namenda] 10 mg PO HS Discharge Medication List Alendronate Sodium [Fosamax] 70 mg PO Q7D 09/30/22 [History] Donepezil HCl [Aricept] 10 mg PO HS 09/30/22 [History] Rosuvastatin Calcium 5 mg PO HS 09/30/22 [History] Memantine [Namenda] 10 mg PO HS 07/07/24 [History] Acetaminophen Tab [Tylenol] 650 mg PO Q6HR PRN tab 07/08/24 [Rx] Follow up Appointment(s)/Referral(s): Luis Jasso MD [Medical Doctor] - 1 Week Richard Smith MD [Primary Care Provider] - 1-2 days Patient Instructions/Handouts: Syncope (DC) Activity/Diet/Wound Care/Special Instructions: Activity limited until follow-up Follow-up with primary care provider on discharge Follow-up outpatient with neurology as needed Continue taking medications as prescribed Follow-up with cardiology outpatient Discharge/Stand Alone Forms: Who Do I Call?, Help In The Home Discharge Disposition: HOME SELF-CARE
--- NOTE | 2024-07-28 03:43 | HM ---
HOLTER MONITOR REPORT STUDY: A 7-day Holter monitor. The patient's predominant rhythm appears to be sinus with a heart rate ranging from 66 to 170 beats per minute with average heart rate of 85 beats per minute. There were isolated PVCs which were frequent and the PVC burden was in the range of 10% or so. There was some artifact. PACs were also noted less than 1%. No significant bradyarrhythmia. Sinus tachycardia was also noted. Even though computer called a heart rate of 170 beats per minute, on reviewing the rhythm strips, the heart rate fastest was about 140 beats per minute with sinus tachycardia. FINAL IMPRESSION: Predominant rhythm is sinus with average heart rate of 85 beats per minute. No evidence of any significant bradycardia. Isolated PVCs with a burden of about 10%. No significant ventricular tachycardia or supraventricular tachycardia. No bradyarrhythmia. No significant symptoms were reported by the patient. MMMARY / DANIELLE: [id number] /
== END 2024-07-08 15:43 | disposition home or self-care (01) ==
LOC: EC 10:38 → 6NMEDSUR 12:47
PROVIDERS: ADMIT Internal Medicine; ATTEND Internal Medicine
DX: I65.29 Occlusion and stenosis of unspecified carotid artery (principal); G93.41 Metabolic encephalopathy; J44.9 Chronic obstructive pulmonary disease, unspecified; I49.3 Ventricular premature depolarization; E78.5 Hyperlipidemia, unspecified; G30.9 Alzheimer's disease, unspecified; F02.80 Dementia in other diseases classified elsewhere, unspecified severity, without behavioral disturbance, psychotic disturbance, mood disturbance, and anxiety; W19.XXXA Unspecified fall, initial encounter; M81.0 Age-related osteoporosis without current pathological fracture; Z79.83 Long term (current) use of bisphosphonates; Z79.899 Other long term (current) drug therapy; Z88.0 Allergy status to penicillin
CPT/HCPCS: 96360; 99285; 36415; 93005; 93225; 93306; 85379; 80053; 83605; 83735; 84484; 85025; 85610; 85730; 71046; 93880; 72125; 70450; G0378 ×2